=== PATIENT | female | born 2000 | race Caucasian/White ===

== ENCOUNTER 2019-03-01 20:42 | Emergency (ER) | payer MEDICAID ==
[2019-03-01 21:02] VITALS: BP 150/93; PULSE 118
[2019-03-01] MEDS ORDERED: Ondansetron 4 MG Tab.DIS PO ONE (21:15)
--- NOTE | 2019-03-01 21:22 | EDM.PDOC ---
ED HPI GENERAL MEDICAL PROBLEM - General Chief Complaint: Gastrointestinal Problem Stated Complaint: VOMITING Time Seen by Provider: 03/01/19 21:05 Source of Information: Reports: Patient, Family, Old Records History Limitations: Reports: No Limitations - History of Present Illness INITIAL COMMENTS - FREE TEXT/NARRATIVE: 18 yo female went to the clinic yesterday for vomiting and L mandibular dental pain. She was given an antibiotic and nothing for the nausea. Her mother has Zofran ODT 4 mg that was given in 3 separate doses today without benefit. No fever. No diarrhea. No abdominal pain. Was supposed to follow up with her dentist today, but she forgot to call and make an appt. No blood in her emesis. Onset: Gradual Onset Date: 02/28/19 Duration: Day(s): (1+), Constant Location: Reports: Abdomen (no pain), Other (L mandible) Quality: Reports: Ache (mouth pain) Severity: Moderate (vomiting) Improves with: Reports: None Worsens with: Reports: Other (unknown) Context: Reports: Other (see HPI) Associated Symptoms: Reports: Nausea/Vomiting. Denies: Cough, Fever/Chills, Shortness of Breath Treatments TECHNICAL SERVICE REP: Reports: Other (see below) (zofran ODT 4 mg) denies Pain Score (Numeric/FACES): 0 - Related Data Allergies Allergy/AdvReac Type Severity Reaction Status Date / Time No Known Allergies Allergy Verified 03/01/19 21:02 Home Meds: Home Meds Albuterol [Proventil HFA] 2 inhalation PO Q4H PRN 08/19/13 [History] Albuterol [Proventil Neb Soln] 1 ampule NEB Q4HRRT PRN 08/19/13 [History] Amoxicillin/Clavulanate K [Augmentin 875-125 MG] 1 tab PO BID 03/01/19 [History] Citalopram Hydrobromide [Celexa] 1 tab PO DAILY 03/01/19 [History] Past Medical History Respiratory History: Reports: Asthma Psychiatric History: Reports: ADHD, Anxiety, Other (See Below) 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 Social & Family History - Tobacco Use Smoking Status *Q: Never Smoker Second Hand Smoke Exposure: No - Caffeine Use Caffeine Use: Reports: Soda, Tea - Recreational Drug Use Recreational Drug Use: No - Living Situation & Occupation Living situation: Reports: with Family Occupation: Student ED ROS GENERAL - Review of Systems Review Of Systems: See Below Constitutional: Reports: No Symptoms HEENT: Reports: Dental Pain (no obvious decay, but there are fillings in the molars on that side. The wisdom tooth on the L mandible looks impacted. ). Denies: Ear Pain, Throat Pain, Throat Swelling Respiratory: Reports: No Symptoms Cardiovascular: Reports: No Symptoms GI/Abdominal: Reports: Nausea, Vomiting. Denies: Abdominal Pain, Black Stool, Bloody Stool, Constipation, Diarrhea, Distension, Flatus, Hematemesis, Hematochezia, Melena : Reports: No Symptoms Musculoskeletal: Reports: No Symptoms Skin: Reports: No Symptoms Neurological: Reports: No Symptoms ED EXAM, GI/ABD - Physical Exam Exam: See Below Exam Limited By: No Limitations General Appearance: Alert, WD/WN, No Apparent Distress, Obese Eyes: Bilateral: Normal Appearance Ears: Normal External Exam, Normal Canal, Hearing Grossly Normal, Normal TMs Nose: Normal Inspection, No Blood Throat/Mouth: Normal Inspection, Normal Lips, Normal Oropharynx, Normal Voice, No Airway Compromise, Other (fillings on molars L mandible and an impacted L mandibular wisdom tooth. ) Head: Atraumatic, Normocephalic Neck: Normal Inspection, Non-Tender Respiratory/Chest: No Respiratory Distress, Lungs Clear, Normal Breath Sounds, No Accessory Muscle Use Cardiovascular: Regular Rate, Rhythm, No Edema GI/Abdominal Exam: Normal Bowel Sounds, Soft, Non-Tender, No Distention, Abnormal Bowel Sounds (decreased). No: Distended, Guarding, Rigid, Rebound, Tender, Hernia Back Exam: Normal Inspection. No: CVA Tenderness (R), CVA Tenderness (L) Extremities: Normal Inspection, Normal Range of Motion, Non-Tender, No Pedal Edema Neurological: Alert, Oriented, CN II-XII Intact, Normal Cognition, No Motor/ Sensory Deficits Psychiatric: Normal Affect, Normal Mood Skin Exam: Warm, Dry, Intact, Normal Color, No Rash Course - Vital Signs Text/Narrative:: Did better after Zofran ODT 8 mg SL. No nausea or vomiting after apple juice. Last Recorded V/S: Last Vital Signs Temp 36.4 C 03/01/19 21:09 Pulse 118 H 03/01/19 21:09 Resp 16 03/01/19 21:09 BP 150/93 H 03/01/19 21:09 Pulse Ox 98 03/01/19 21:09 Orthostatic Blood Pressure [ 142/66 Standing] Orthostatic Blood Pressure [ 129/82 Sitting] Orthostatic Blood Pressure [ 114/69 Supine] - Orders/Labs/Meds Orders: Active Orders 24 hr Category Date Time Status Orthostatic Vital Signs [RC] ASDIRECTED Care 03/01/19 21:19 Active Meds: Medications Discontinued Medications Generic Name Dose Route Start Last Admin Trade Name Radha PRN Reason Stop Dose Admin Ondansetron HCl 8 mg 03/01/19 21:15 03/01/19 21:34 Zofran Odt PO 03/01/19 21:16 8 mg ONETIME ONE Administration Departure - Departure Time of Disposition: 22:35 Disposition: Home, Self-Care 01 Condition: Good Clinical Impression: Nausea and vomiting Qualifiers: Vomiting type: unspecified Vomiting Intractability: non-intractable Qualified Code(s): R11.2 - Nausea with vomiting, unspecified - Discharge Information *PRESCRIPTION DRUG MONITORING PROGRAM REVIEWED*: No *COPY OF PRESCRIPTION DRUG MONITORING REPORT IN PATIENT MAGGIE: No Instructions: Nausea and Vomiting, Adult, [id number] Referrals: Norris Quintero MD [Primary Care Provider] - Forms: ED Department Discharge Additional Instructions: Take Zofran ODT 8 mg every 8 hrs as needed for nausea control. Continue your antibiotic. See your dentist [place]. Take acetaminophen as needed for pain relief. Sepsis Event Note - Evaluation Sepsis Screening Result: No Definite Risk - Focused Exam Vital Signs: Vital Signs Temp Pulse Resp BP Pulse Ox 03/01/19 21:09 36.4 C 118 H 16 150/93 H 98 03/01/19 21:00 36.4 C 118 H 16 150/93 H 98 Date Exam was Performed: 03/01/19 Time Exam was Performed: 22:28 - My Orders Last 24 Hours: My Active Orders 03/01/19 21:19 Orthostatic Vital Signs [RC] ASDIRECTED - Assessment/Plan Last 24 Hours: My Active Orders 03/01/19 21:19 Orthostatic Vital Signs [RC] ASDIRECTED
== END 2019-03-01 22:36 | disposition home or self-care (01) ==
LOC: JP.ED 20:42
DX: R11.2 Nausea with vomiting, unspecified (principal); J45.909 Unspecified asthma, uncomplicated; Z79.899 Other long term (current) drug therapy
CPT/HCPCS: 99283; A9270

== ENCOUNTER 2019-04-16 14:21 | Emergency (ER) | payer MEDICAID ==
[2019-04-16 15:02] VITALS: BP 124/81; PULSE 79
--- NOTE | 2019-04-16 15:35 | EDM.PDOC ---
ED HPI GENERAL MEDICAL PROBLEM - General Chief Complaint: Lower Extremity Injury/Pain Stated Complaint: RIGHT ANKEL PAIN Time Seen by Provider: 04/16/19 15:33 Source of Information: Reports: Patient History Limitations: Reports: No Limitations - History of Present Illness INITIAL COMMENTS - FREE TEXT/NARRATIVE: pt states she twisted her ankle about 2 weeks ago and then again last nite. She is having pain with weight bearing. Onset: Other ( hurt the ankle last nite. ) Duration: Hour(s): Location: Reports: Lower Extremity, Right Associated Symptoms: Reports: No Other Symptoms - Related Data Allergies Allergy/AdvReac Type Severity Reaction Status Date / Time No Known Allergies Allergy Verified 03/01/19 21:02 Home Meds: Home Meds Albuterol [Proventil HFA] 2 inhalation PO Q4H PRN 08/19/13 [History] Albuterol [Proventil Neb Soln] 1 ampule NEB Q4HRRT PRN 08/19/13 [History] Citalopram Hydrobromide [Celexa] 20 mg PO DAILY 03/01/19 [History] traZODone HCl [Trazodone HCl] 50 mg PO BEDTIME 04/16/19 [History] Past Medical History Respiratory History: Reports: Asthma Psychiatric History: Reports: ADHD, Anxiety, Other (See Below) 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 Social & Family History - Tobacco Use Smoking Status *Q: Never Smoker - Caffeine Use Caffeine Use: Reports: None - Recreational Drug Use Recreational Drug Use: No - Living Situation & Occupation Living situation: Reports: with Family Occupation: Student Review of Systems - Review of Systems Review Of Systems: See Below Constitutional: Reports: No Symptoms Eyes: Reports: No Symptoms Ears: Reports: No Symptoms Nose: Reports: No Symptoms Mouth/Throat: Reports: No Symptoms Respiratory: Reports: No Symptoms Cardiovascular: Reports: No Symptoms GI/Abdominal: Reports: No Symptoms Genitourinary: Reports: No Symptoms Musculoskeletal: Reports: Other (painful ankle and foot on the rt. ) Skin: Reports: No Symptoms ED EXAM, GENERAL - Physical Exam Exam: See Below Free Text/Narrative:: pt twisted her ankle 2 weeks ago and now again last nite. She is having pain with weight bearing. Exam Limited By: No Limitations General Appearance: Alert, Anxious Extremities: Other ( rt ankle is swollen laterally slightly. ) Neurological: Alert, Oriented Course - Vital Signs Last Recorded V/S: Last Vital Signs Temp 36.1 C 04/16/19 15:06 Pulse 79 04/16/19 15:06 Resp 16 04/16/19 15:06 BP 124/81 04/16/19 15:06 Pulse Ox 98 04/16/19 15:06 - Orders/Labs/Meds Orders: Active Orders 24 hr Category Date Time Status Ankle Min 3V Rt [CR] Stat Exams 04/16/19 15:31 Taken Foot 2V Rt [CR] Stat Exams 04/16/19 15:31 Taken - Re-Assessments/Exams Free Text/Narrative Re-Assessment/Exam: 04/16/19 16:39 xray of the foot and ankle is neg for fracture. Departure - Departure Time of Disposition: 16:31 Disposition: Home, Self-Care 01 Condition: Fair Clinical Impression: Ankle sprain - Discharge Information Instructions: Ankle Sprain, [id number] Referrals: PCP,None [Primary Care Provider] - Forms: ED Department Discharge Care Plan Goals: stirup splint cool pack to the area, elevate when possible. motrin 600mg tisd as needed for pain. Sepsis Event Note - Evaluation Sepsis Screening Result: No Definite Risk - Focused Exam Vital Signs: Vital Signs Temp Pulse Resp BP Pulse Ox 04/16/19 15:06 36.1 C 79 16 124/81 98 04/16/19 15:00 36.1 C 79 16 124/81 98 Date Exam was Performed: 04/16/19 Time Exam was Performed: 16:35 - My Orders Last 24 Hours: My Active Orders 04/16/19 15:31 Ankle Min 3V Rt [CR] Stat Foot 2V Rt [CR] Stat - Assessment/Plan Last 24 Hours: My Active Orders 04/16/19 15:31 Ankle Min 3V Rt [CR] Stat Foot 2V Rt [CR] Stat
--- NOTE | 2019-04-18 09:06 | CR ---
Ankle Min 3V Rt, Foot 2V Rt CLINICAL HISTORY: Injury FINDINGS: The soft tissues are mildly swollen over the lateral malleolus. No acute fracture or dislocation is noted. Ankle mortise is intact. Articular surfaces are smooth. Impression: Negative FOOT RIGHT 3 views CLINICAL HISTORY:3 FINDINGS:No fracture or dislocation is identified. Articular surfaces are smooth. Impression: No acute finding
== END 2019-04-16 16:42 | disposition home or self-care (01) ==
LOC: JP.ED 14:21
DX: S93.401A Sprain of unspecified ligament of right ankle, initial encounter (principal); Z79.899 Other long term (current) drug therapy; X50.1XXA Overexertion from prolonged static or awkward postures, initial encounter
CPT/HCPCS: 73610-26-RT; 73610-RT; 73620-26-RT; 73620-RT; 99283

== ENCOUNTER 2019-05-20 20:56 | Emergency (ER) | payer MEDICAID ==
[2019-05-20 21:38] VITALS: BP 117/88; PULSE 99
--- NOTE | 2019-05-20 21:50 | EDM.PDOC ---
ED HPI GENERAL MEDICAL PROBLEM - General Chief Complaint: ENT Problem Stated Complaint: LEFT BOTTOM TOOTHACHE Time Seen by Provider: 05/20/19 21:44 Source of Information: Reports: Patient History Limitations: Reports: No Limitations - History of Present Illness INITIAL COMMENTS - FREE TEXT/NARRATIVE: Patient presents describing left lower jaw tooth discomfort over the last day or so. She has an area of cavity in that tooth but has not seen a dentist yet. Pain is interfering with activities. No unusual taste in the mouth. No bleeding or other discharge. She does not have any pain medication at home. Onset: Gradual Duration: Day(s): (2) Location: Reports: Head Quality: Reports: Ache Severity: Mild Improves with: Reports: None Worsens with: Reports: Eating Associated Symptoms: Reports: No Other Symptoms 10 Pain Score (Numeric/FACES): 10 - Related Data Allergies Allergy/AdvReac Type Severity Reaction Status Date / Time No Known Allergies Allergy Verified 05/20/19 21:35 Home Meds: Home Meds Albuterol [Proventil HFA] 2 inhalation PO Q4H PRN 08/19/13 [History] Albuterol [Proventil Neb Soln] 1 ampule NEB Q4HRRT PRN 08/19/13 [History] Citalopram Hydrobromide [Celexa] 20 mg PO DAILY 03/01/19 [History] traZODone HCl [Trazodone HCl] 50 mg PO BEDTIME 04/16/19 [History] Past Medical History - Past Health History Medical/Surgical History: Denies Medical/Surgical History Respiratory History: Reports: Asthma Psychiatric History: Reports: ADHD, Anxiety, Other (See Below) 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 Social & Family History - Tobacco Use Smoking Status *Q: Never Smoker - Caffeine Use Caffeine Use: Reports: None - Recreational Drug Use Recreational Drug Use: No - Living Situation & Occupation Living situation: Reports: with Family Occupation: Student ED ROS ENT - Review of Systems Review Of Systems: Comprehensive ROS is negative, except as noted in HPI. ED EXAM, ENT - Physical Exam Exam: See Below Exam Limited By: No Limitations General Appearance: Alert, No Apparent Distress Mouth/Throat: Other (There is extensive central decay in tooth #18 along with some gingival redness and edema same location. No visible or palpable pus area is noted. No neck nodes.) Course - Vital Signs Last Recorded V/S: Last Vital Signs Temp 36.4 C 05/20/19 21:36 Pulse 99 05/20/19 21:36 Resp 18 05/20/19 21:36 BP 117/88 05/20/19 21:36 Pulse Ox 96 05/20/19 21:36 - Re-Assessments/Exams Free Text/Narrative Re-Assessment/Exam: 05/20/19 21:52 I recommend she use a piece of chewing gum over the cavity in tooth #18. Start amoxicillin 500 mg antibiotic tonight. Use ibuprofen 600 mg 4 times daily. Contact dentist on Thursday, 22 May for further advice about this decayed tooth. Return to ER if feeling worse in anyway. Departure - Departure Time of Disposition: 21:49 Disposition: Home, Self-Care 01 Condition: Good Clinical Impression: Dental caries - Discharge Information *PRESCRIPTION DRUG MONITORING PROGRAM REVIEWED*: Not Applicable *COPY OF PRESCRIPTION DRUG MONITORING REPORT IN PATIENT MAGGIE: Not Applicable Instructions: Dental Caries, Pediatric Referrals: Norris Quintero MD [Primary Care Provider] - Forms: ED Department Discharge Additional Instructions: Start antibiotic tonight. Use ibuprofen regularly for pain. Use a piece of chewing gum to cover the cavity area of the tooth to help reduce pain. Contact your dentist on Thursday for further advice on what to do with this painful tooth. Sepsis Event Note - Evaluation Sepsis Screening Result: No Definite Risk - Focused Exam Vital Signs: Vital Signs Temp Pulse Resp BP Pulse Ox 05/20/19 21:36 36.4 C 99 18 117/88 96 Date Exam was Performed: 05/20/19 Time Exam was Performed: 23:51
== END 2019-05-20 21:58 | disposition home or self-care (01) ==
LOC: JP.ED 20:56
DX: K02.9 Dental caries, unspecified (principal); F41.9 Anxiety disorder, unspecified; J45.909 Unspecified asthma, uncomplicated; F79 Unspecified intellectual disabilities; Z79.899 Other long term (current) drug therapy
CPT/HCPCS: 99283

== ENCOUNTER 2019-06-17 01:46 | Emergency (ER) | payer MEDICAID ==
--- NOTE | 2019-06-17 02:01 | EDM.PDOC ---
ED HPI GENERAL MEDICAL PROBLEM - General Chief Complaint: General Stated Complaint: LEFT SIDE JAW PAIN Time Seen by Provider: 06/17/19 01:58 Source of Information: Reports: Patient History Limitations: Reports: No Limitations - History of Present Illness INITIAL COMMENTS - FREE TEXT/NARRATIVE: pt is having pain in the left lower jaw area. She is scheduled to have a tooth extraction next Thursday. She was refered by the local dental office. Her pain has gotten alot worse tonight. Onset: Gradual Duration: Hour(s): Location: Reports: Face Associated Symptoms: Reports: No Other Symptoms - Related Data Allergies Allergy/AdvReac Type Severity Reaction Status Date / Time No Known Allergies Allergy Verified 06/17/19 01:58 Home Meds: Home Meds Albuterol [Proventil HFA] 2 inhalation PO Q4H PRN 08/19/13 [History] Albuterol [Proventil Neb Soln] 1 ampule NEB Q4HRRT PRN 08/19/13 [History] Citalopram Hydrobromide [Celexa] 20 mg PO DAILY 03/01/19 [History] traZODone HCl [Trazodone HCl] 50 mg PO BEDTIME 04/16/19 [History] Past Medical History - Past Health History Medical/Surgical History: Denies Medical/Surgical History Respiratory History: Reports: Asthma Psychiatric History: Reports: ADHD, Anxiety, Other (See Below) 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 Social & Family History - Caffeine Use Caffeine Use: Reports: None - Living Situation & Occupation Living situation: Reports: with Family Occupation: Student ED ROS GENERAL - Review of Systems Review Of Systems: See Below Constitutional: Reports: No Symptoms HEENT: Reports: Dental Pain, Other (pt has pain in her left lower jaw area. She does not have a fever. ) Respiratory: Reports: No Symptoms Cardiovascular: Reports: No Symptoms Endocrine: Reports: No Symptoms GI/Abdominal: Reports: No Symptoms : Reports: No Symptoms Musculoskeletal: Reports: No Symptoms Skin: Reports: No Symptoms Neurological: Reports: No Symptoms ED EXAM, GENERAL - Physical Exam Exam: See Below Free Text/Narrative:: pt arrived with a painful left lower jaw which is keeping her awake. Exam Limited By: No Limitations General Appearance: Alert, Anxious, Mild Distress Ears: Normal TMs Nose: Normal Inspection Throat/Mouth: Other (pt has a carrious left lower molar that is tender. She is scheduled to have that removed ) Head: Atraumatic Neck: Normal Inspection Respiratory/Chest: No Respiratory Distress Cardiovascular: Regular Rate, Rhythm GI/Abdominal: Soft, Non-Tender (Female) Exam: Deferred Rectal (Female) Exam: Deferred Back Exam: Normal Inspection Extremities: Normal Inspection Course - Vital Signs Last Recorded V/S: Last Vital Signs Temp 36.7 C 06/17/19 01:59 Pulse 79 06/17/19 01:59 Resp 16 06/17/19 01:59 BP 151/97 H 06/17/19 01:59 Pulse Ox 94 L 06/17/19 01:59 - Re-Assessments/Exams Free Text/Narrative Re-Assessment/Exam: 06/17/19 02:18 pt was given torodol 60mg im and norco 5/325 . She will be placed on anantibiotic. Departure - Departure Time of Disposition: 02:19 Disposition: Home, Self-Care 01 Condition: Fair Clinical Impression: Infected tooth - Discharge Information Referrals: Norris Quintero MD [Primary Care Provider] - Forms: ED Department Discharge Care Plan Goals: amoxicillin 500mg tid, torodol 10 mg q6h prn for pain for the next 5 days. Keep [place] appt in [place] for the [place] of this tooth. Sepsis Event Note - Focused Exam Vital Signs: Vital Signs Temp Pulse Resp BP Pulse Ox 06/17/19 01:59 36.7 C 79 16 151/97 H 94 L Date Exam was Performed: 06/17/19 Time Exam was Performed: 02:14
[2019-06-17 02:02] VITALS: BP 151/97; PULSE 79
[2019-06-17] MEDS ORDERED: Acetaminophen/HYDROcodone 325-5 MG Tab PO ONE (02:19)
[2019-06-17] MEDS ORDERED: Ketorolac 60 MG/2 ML SDV IM ONE (02:19)
== END 2019-06-17 02:33 | disposition home or self-care (01) ==
LOC: JP.ED 01:46
DX: K04.7 Periapical abscess without sinus (principal); K02.9 Dental caries, unspecified; J45.909 Unspecified asthma, uncomplicated; F41.9 Anxiety disorder, unspecified; Z79.899 Other long term (current) drug therapy; F79 Unspecified intellectual disabilities
CPT/HCPCS: 96372; 99283; A9270; J1885

== ENCOUNTER 2019-07-05 23:49 | Emergency (ER) | payer MEDICAID ==
[2019-07-06 00:21] VITALS: BP 130/81; PULSE 80
--- NOTE | 2019-07-06 00:25 | EDM.PDOC ---
ED HPI GENERAL MEDICAL PROBLEM - General Chief Complaint: Upper Extremity Injury/Pain Stated Complaint: LEFT WRIST PAIN Time Seen by Provider: 07/06/19 00:00 Source of Information: Reports: Patient History Limitations: Reports: No Limitations - History of Present Illness INITIAL COMMENTS - FREE TEXT/NARRATIVE: 18-year-old female was walking a dog earlier today when the dog lunged ahead while the leash was wrapped around her left wrist, pulling on her wrist. There was not any significant pain initially but tonight it is sore to move her wrist. There is no bruising swelling deformity and she has not taken anything for medication. No other complaints. Onset: Sudden Duration: Hour(s): (About 7 hours ago) Location: Reports: Upper Extremity, Left Associated Symptoms: Reports: No Other Symptoms Left Wrist Pain Score (Numeric/FACES): 7 - Related Data Allergies Allergy/AdvReac Type Severity Reaction Status Date / Time No Known Allergies Allergy Verified 07/06/19 00:11 Home Meds: Home Meds Albuterol [Proventil HFA] 2 inhalation PO Q4H PRN 08/19/13 [History] Albuterol [Proventil Neb Soln] 1 ampule NEB Q4HRRT PRN 08/19/13 [History] Citalopram Hydrobromide [Celexa] 20 mg PO DAILY 03/01/19 [History] traZODone HCl [Trazodone HCl] 50 mg PO BEDTIME 04/16/19 [History] Past Medical History - Past Health History Medical/Surgical History: Denies Medical/Surgical History Respiratory History: Reports: Asthma Psychiatric History: Reports: ADHD, Anxiety, Other (See Below) 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 Social & Family History - Family History Family Medical History: Noncontributory - Tobacco Use Smoking Status *Q: Never Smoker - Caffeine Use Caffeine Use: Reports: Soda - Recreational Drug Use Recreational Drug Use: No - Living Situation & Occupation Living situation: Reports: with Family Occupation: Student Review of Systems - Review of Systems Review Of Systems: See Below Constitutional: Denies: Fever Respiratory: Reports: No Symptoms Cardiovascular: Reports: No Symptoms Skin: Denies: Bruising Neurological: Denies: Paresthesia Psychiatric: Reports: No Symptoms ED EXAM, GENERAL - Physical Exam Exam: See Below Exam Limited By: No Limitations General Appearance: Alert, No Apparent Distress Head: Atraumatic Respiratory/Chest: No Respiratory Distress Extremities: Other (Exam is otherwise limited to the left arm. She has no pain to the shoulder elbow or wrist to palpation. There is slight soreness with flexion of the wrist against resistance but there is good grasp strength and she has full range of motion) Course - Vital Signs Last Recorded V/S: Last Vital Signs Temp 98.1 F 07/06/19 00:11 Pulse 80 07/06/19 00:11 Resp 16 07/06/19 00:11 BP 130/81 07/06/19 00:11 Pulse Ox 98 07/06/19 00:11 - Re-Assessments/Exams Free Text/Narrative Re-Assessment/Exam: 07/06/19 00:23 Explained to the patient she has a mild strain of the wrist, and a 3 inch David wrap was applied to the wrist. She can take ibuprofen or Tylenol for the next couple of days and increase activity as tolerated. Departure - Departure Time of Disposition: 00:26 Disposition: Home, Self-Care 01 Condition: Good Clinical Impression: Strain of wrist, left Qualifiers: Encounter type: initial encounter Qualified Code(s): S66.912A - Strain of unspecified muscle, fascia and tendon at wrist and hand level, left hand, initial encounter - Discharge Information Instructions: Wrist Sprain, Adult Referrals: PCP,None [Primary Care Provider] - Forms: ED Department Discharge Care Plan Goals: Wear wrap for the next couple of days, and ibuprofen or Tylenol may be helpful and increase activity as tolerated. Recheck in 4 to 6 days if not improving satisfactorily. Sepsis Event Note - Evaluation Sepsis Screening Result: No Definite Risk - Focused Exam Vital Signs: Vital Signs Temp Pulse Resp BP Pulse Ox 07/06/19 00:11 98.1 F 80 16 130/81 98 Date Exam was Performed: 07/06/19 Time Exam was Performed: 02:16
== END 2019-07-06 00:30 | disposition home or self-care (01) ==
LOC: JP.ED 23:49
DX: S66.912A Strain of unspecified muscle, fascia and tendon at wrist and hand level, left hand, initial encounter (principal); J45.909 Unspecified asthma, uncomplicated; F41.9 Anxiety disorder, unspecified; F79 Unspecified intellectual disabilities; Z79.899 Other long term (current) drug therapy; X50.9XXA Other and unspecified overexertion or strenuous movements or postures, initial encounter
CPT/HCPCS: 99283

== ENCOUNTER 2019-10-19 00:45 | Emergency (ER) | payer MEDICAID ==
--- NOTE | 2019-10-19 00:51 | EDM.PDOC ---
ED HPI GENERAL MEDICAL PROBLEM - General Chief Complaint: Upper Extremity Injury/Pain Stated Complaint: LEFT HAND PAIN Time Seen by Provider: 10/19/19 01:03 Source of Information: Reports: Patient, Old Records, RN History Limitations: Reports: No Limitations - History of Present Illness INITIAL COMMENTS - FREE TEXT/NARRATIVE: 19 yo female awoke with L hand numbness to most of her fingers. Sx's mostly gone by the time she arrives in the ER. No hx of the same. Onset: Today, Sudden Onset Date: 10/19/19 Duration: Minutes:, Resolved Prior to Arrival Location: Reports: Upper Extremity, Left Quality: Reports: Other (numbness) Severity: Moderate Improves with: Reports: Other (time) Worsens with: Reports: Other (uncertain) Context: Reports: Other (See HPI) Associated Symptoms: Reports: No Other Symptoms Treatments GROUNDS PERSON: Reports: Other (see below) (none) Left Hand Pain Score (Numeric/FACES): 6 - Related Data Allergies Allergy/AdvReac Type Severity Reaction Status Date / Time No Known Allergies Allergy Verified 10/19/19 00:54 Home Meds: Home Meds Albuterol [Proventil HFA] 2 inhalation PO Q4H PRN 08/19/13 [History] Albuterol [Proventil Neb Soln] 1 ampule NEB Q4HRRT PRN 08/19/13 [History] Citalopram Hydrobromide [Celexa] 20 mg PO DAILY 03/01/19 [History] traZODone HCl [Trazodone HCl] 50 mg PO BEDTIME 04/16/19 [History] Past Medical History - Past Health History Medical/Surgical History: Denies Medical/Surgical History Respiratory History: Reports: Asthma Psychiatric History: Reports: ADHD, Anxiety, Other (See Below) 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 Social & Family History - Family History Family Medical History: Noncontributory - Caffeine Use Caffeine Use: Reports: Soda - Living Situation & Occupation Living situation: Reports: with Family Occupation: Student Review of Systems - Review of Systems Review Of Systems: See Below Constitutional: Reports: No Symptoms Musculoskeletal: Reports: No Symptoms Skin: Reports: No Symptoms Neurological: Reports: Numbness (L hand only) ED EXAM, GENERAL - Physical Exam Exam: See Below Exam Limited By: No Limitations General Appearance: Alert, WD/WN, No Apparent Distress, Obese Extremities: Normal Inspection, Normal Range of Motion, Non-Tender, No Pedal Edema. No: Pedal Edema, Limited Range of Motion, Increased Warmth, Redness Neurological: Alert, Oriented, CN II-XII Intact, Normal Cognition, No Motor/Sensory Deficits, Other (negative Tinnel's and Phalen's tests). No: Sensory/Motor Deficit Psychiatric: Normal Affect, Normal Mood Skin Exam: Warm, Dry, Intact, Normal Color, No Rash Course - Vital Signs Last Recorded V/S: Last Vital Signs Temp 35.7 C L 10/19/19 01:00 Pulse 99 10/19/19 01:00 Resp 16 10/19/19 01:00 BP 130/85 10/19/19 01:00 Pulse Ox 99 10/19/19 01:00 Departure - Departure Time of Disposition: 01:10 Disposition: Home, Self-Care 01 Condition: Good Clinical Impression: Nerve compression - Discharge Information *PRESCRIPTION DRUG MONITORING PROGRAM REVIEWED*: No *COPY OF PRESCRIPTION DRUG MONITORING REPORT IN PATIENT MAGGIE: No Instructions: Pinched Nerve Referrals: PCP,None [Primary Care Provider] - Forms: ED Department Discharge Additional Instructions: Recheck as needed. Sepsis Event Note (ED) - Focused Exam Vital Signs: Vital Signs Temp Pulse Resp BP Pulse Ox 10/19/19 01:00 35.7 C L 99 16 130/85 99
[2019-10-19 01:01] VITALS: BP 130/85; PULSE 99
== END 2019-10-19 01:13 | disposition home or self-care (01) ==
LOC: JP.ED 00:45
DX: G56.92 Unspecified mononeuropathy of left upper limb (principal); E66.9 Obesity, unspecified; F41.9 Anxiety disorder, unspecified; J45.909 Unspecified asthma, uncomplicated; Z79.899 Other long term (current) drug therapy; Z68.42 Body mass index [BMI] 45.0-49.9, adult
CPT/HCPCS: 99283

== ENCOUNTER 2020-05-01 19:54 | Emergency (ER) | payer MEDICAID ==
[2020-05-01 20:13] VITALS: BP 152/82; PULSE 111
--- NOTE | 2020-05-01 20:32 | EDM.PDOC ---
ED HPI GENERAL MEDICAL PROBLEM - General Chief Complaint: ENT Problem Stated Complaint: TOOTH PAIN Time Seen by Provider: 05/01/20 20:15 Source of Information: Reports: Patient History Limitations: Reports: No Limitations - History of Present Illness INITIAL COMMENTS - FREE TEXT/NARRATIVE: 19-year-old female with a swollen and tender area just above the first canine of the right maxillae for the last several days. No significant swelling of the face, no fever or erythema of soft tissue. Onset: Gradual Duration: Day(s): (3 days) Location: Reports: Other (Right mandible canine) Oral/Mouth Pain Score (Numeric/FACES): 8 - Related Data Allergies Allergy/AdvReac Type Severity Reaction Status Date / Time No Known Allergies Allergy Verified 10/19/19 00:54 Home Meds: Home Meds Albuterol [Proventil HFA] 2 inhalation PO Q4H PRN 08/19/13 [History] Albuterol [Proventil Neb Soln] 1 ampule NEB Q4HRRT PRN 08/19/13 [History] Citalopram Hydrobromide [Celexa] 20 mg PO DAILY 03/01/19 [History] traZODone HCl [Trazodone HCl] 50 mg PO BEDTIME 04/16/19 [History] Ibuprofen 200 mg PO ASDIRECTED PRN 05/01/20 [History] Past Medical History - Past Health History Medical/Surgical History: Denies Medical/Surgical History Respiratory History: Reports: Asthma Psychiatric History: Reports: ADHD, Anxiety, Other (See Below) 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 Social & Family History - Family History Family Medical History: No Pertinent Family History - Tobacco Use Tobacco Use Status *Q: Never Tobacco User - Caffeine Use Caffeine Use: Reports: Coffee, Soda, Tea - Recreational Drug Use Recreational Drug Use: No - Living Situation & Occupation Living situation: Reports: with Family Occupation: Student ED ROS ENT - Review of Systems Review Of Systems: See Below Constitutional: Denies: Fever, Chills HEENT: Reports: Dental Pain Respiratory: Denies: Shortness of Breath Cardiovascular: Denies: Chest Pain GI/Abdominal: Denies: Nausea, Vomiting ED EXAM, ENT - Physical Exam Exam: See Below Exam Limited By: No Limitations General Appearance: Alert, No Apparent Distress Mouth/Throat: Other (Patient does have some mild swelling of the gingiva above the first canine on the right maxillae, it is also tender to palpation but not fluctuant) Respiratory/Chest: No Respiratory Distress Neurological: Alert, Oriented Psychiatric: Normal Affect, Normal Mood Skin: Warm, Dry Course - Vital Signs Last Recorded V/S: Last Vital Signs Temp 97.9 F 05/01/20 20:16 Pulse 111 H 05/01/20 20:16 Resp 16 05/01/20 20:16 BP 152/82 H 05/01/20 20:16 Pulse Ox 97 05/01/20 20:16 - Re-Assessments/Exams Free Text/Narrative Re-Assessment/Exam: 05/01/20 20:31 Patient was placed on penicillin VK 500 3 times a day and I would like her to call her dentist this week to consider rechecking and get dental x-rays. Departure - Departure Time of Disposition: 20:39 Disposition: Home, Self-Care 01 Clinical Impression: Dental abscess - Discharge Information Instructions: Dental Abscess, [id number] Referrals: Norris Quintero MD [Primary Care Provider] - Forms: ED Department Discharge Care Plan Goals: Take antibiotic 3 times a day for at least 7 days, and call your dentist to see if they can get you in for dental x-rays or at least a recheck later this week. Sepsis Event Note (ED) - Evaluation Sepsis Screening Result: No Definite Risk - Focused Exam Vital Signs: Vital Signs Temp Pulse Resp BP Pulse Ox 05/01/20 20:16 97.9 F 111 H 16 152/82 H 97 05/01/20 20:12 97.9 F 111 H 16 152/82 H 97
== END 2020-05-01 20:39 | disposition home or self-care (01) ==
LOC: JP.ED 19:54
DX: K04.7 Periapical abscess without sinus (principal); J45.909 Unspecified asthma, uncomplicated; Z79.899 Other long term (current) drug therapy
CPT/HCPCS: 99282; 99283

== ENCOUNTER 2020-08-07 22:12 | Emergency (ER) | payer MEDICAID ==
[2020-08-07 22:52] VITALS: BP 128/87; PULSE 105
--- NOTE | 2020-08-07 23:29 | EDM.PDOC ---
ED HPI GENERAL MEDICAL PROBLEM - General Chief Complaint: Skin Complaint Stated Complaint: RASH ON LEFT FOREARM Time Seen by Provider: 08/07/20 22:26 Source of Information: Reports: Patient History Limitations: Reports: No Limitations - History of Present Illness INITIAL COMMENTS - FREE TEXT/NARRATIVE: chief complaint: rash on right forearm This is a 19 year old female present to the ER for evaluation of rash on arm for the past two days. She has not applied any cremes or lotion to the rash or taken any pills. She reports the rash is very itchy and bothers her at night when she is trying to sleep. reports no other concerns. Onset: Gradual Onset Date: 08/05/20 Duration: Day(s): (two) Location: Reports: Upper Extremity, Right Quality: Reports: Other (itch) Severity: Moderate Improves with: Reports: None Worsens with: Reports: None Associated Symptoms: Reports: No Other Symptoms - Related Data Allergies Allergy/AdvReac Type Severity Reaction Status Date / Time No Known Allergies Allergy Verified 08/07/20 23:14 Home Meds: Home Meds Albuterol [Proventil HFA] 2 inhalation PO Q4H PRN 08/19/13 [History] Albuterol [Proventil Neb Soln] 1 ampule NEB Q4HRRT PRN 08/19/13 [History] Citalopram Hydrobromide [Celexa] 20 mg PO DAILY 03/01/19 [History] traZODone HCl [Trazodone HCl] 50 mg PO BEDTIME 04/16/19 [History] Ibuprofen 200 mg PO ASDIRECTED PRN 05/01/20 [History] Past Medical History - Past Health History Medical/Surgical History: Denies Medical/Surgical History Respiratory History: Reports: Asthma Psychiatric History: Reports: ADHD, Anxiety, Other (See Below) 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 Social & Family History - Family History Family Medical History: No Pertinent Family History - Caffeine Use Caffeine Use: Reports: Coffee, Soda, Tea - Living Situation & Occupation Living situation: Reports: with Family Occupation: Student ED ROS GENERAL - Review of Systems Review Of Systems: See Below Constitutional: Reports: Other (itchy rash on the arm for two days) HEENT: Reports: No Symptoms Respiratory: Reports: No Symptoms Cardiovascular: Reports: No Symptoms Endocrine: Reports: No Symptoms GI/Abdominal: Reports: No Symptoms Musculoskeletal: Reports: No Symptoms Skin: Reports: Rash (right forearm) Neurological: Reports: No Symptoms Psychiatric: Reports: No Symptoms Hematologic/Lymphatic: Reports: No Symptoms Immunologic: Reports: No Symptoms ED EXAM, SKIN/RASH Exam: See Below Exam Limited By: No Limitations General Appearance: Alert, WD/WN, No Apparent Distress, Other (neat and well groomed, pleasant young Lady) Respiratory/Chest: No Respiratory Distress, Lungs Clear, Normal Breath Sounds, No Accessory Muscle Use, Chest Non-Tender Cardiovascular: Regular Rate, Rhythm, No Murmur Extremities: Normal Range of Motion, Non-Tender, Normal Capillary Refill, Other (rash noted to the right forearm) Neurological: Alert, Oriented, CN II-XII Intact, Normal Cognition, Normal Gait, Normal Reflexes, No Motor/Sensory Deficits Psychiatric: Normal Affect, Normal Mood Skin: Rash Location, Skin: Upper Extremity, Right Characteristics: Maculopapular, Fine Associated features: Warmth Lymphatic: No Adenopathy Course - Vital Signs Last Recorded V/S: Last Vital Signs Temp 96.9 F 08/07/20 22:51 Pulse 105 H 08/07/20 22:51 Resp 18 08/07/20 22:51 BP 128/87 08/07/20 22:51 Pulse Ox 99 08/07/20 22:51 - Re-Assessments/Exams Free Text/Narrative Re-Assessment/Exam: 08/07/20 23:35 discussed skin rashes, will order Benadryl po and Hydrocortisone creme for itch and will help resolve the rash return to Clinic or ER if not improved or symptoms worsen. Khalida agrees with plan of care. Departure - Departure Time of Disposition: 23:26 Disposition: Home, Self-Care 01 Condition: Good Clinical Impression: Pruritic rash - Discharge Information *PRESCRIPTION DRUG MONITORING PROGRAM REVIEWED*: Not Applicable *COPY OF PRESCRIPTION DRUG MONITORING REPORT IN PATIENT MAGGIE: Not Applicable Instructions: Pruritus, Rash, Adult Referrals: Norris Quintero MD [Primary Care Provider] - Forms: ED Department Discharge Care Plan Goals: Rash to right forearm -Benadryl 25 mg take one capsule every 6 hours as needed for itch -apply Hydrocortisone creme to rash two times a day as needed for itch -avoid scratching return to Clinic for recheck if not improved Return to ER for any concerns. Sepsis Event Note (ED) - Focused Exam Vital Signs: Vital Signs Temp Pulse Resp BP Pulse Ox 08/07/20 22:51 96.9 F 105 H 18 128/87 99 - Problem List & Annotations (1) Pruritic rash SNOMED Code(s): 46597570 Code(s): L28.2 - OTHER PRURIGO Status: Acute Priority: High Current Visit: Yes - Problem List Review Problem List Initiated/Reviewed/Updated: Yes - Assessment/Plan Plan: Rash to right forearm -Benadryl 25 mg take one capsule every 6 hours as needed for itch -apply Hydrocortisone creme to rash two times a day as needed for itch -avoid scratching return to Clinic for recheck if not improved Return to ER for any concerns.
== END 2020-08-07 23:49 | disposition home or self-care (01) ==
LOC: JP.ED 22:12
DX: L29.9 Pruritus, unspecified (principal)
CPT/HCPCS: 99282

== ENCOUNTER 2020-08-12 18:10 | Emergency (ER) | payer MEDICAID ==
--- NOTE | 2020-08-12 18:17 | EDM.PDOC ---
ED HPI GENERAL MEDICAL PROBLEM - General Chief Complaint: Upper Extremity Injury/Pain Stated Complaint: PAIN IN THUMB Time Seen by Provider: 08/12/20 18:17 Source of Information: Reports: Patient - History of Present Illness INITIAL COMMENTS - FREE TEXT/NARRATIVE: Khalida is a 19 year old female whom presents to ER with right thumb pain, Unknown injury but grasping and holding items with thumb causes pain which dose not improved. Khalida has not taken at medication for pain today but concerned regarding her pain. Right Finger-Thumb Pain Score (Numeric/FACES): 6 - Related Data Allergies Allergy/AdvReac Type Severity Reaction Status Date / Time No Known Allergies Allergy Verified 08/07/20 23:14 Home Meds: Home Meds Albuterol [Proventil HFA] 2 inhalation PO Q4H PRN 08/19/13 [History] Albuterol [Proventil Neb Soln] 1 ampule NEB Q4HRRT PRN 08/19/13 [History] Citalopram Hydrobromide [Celexa] 20 mg PO DAILY 03/01/19 [History] traZODone HCl [Trazodone HCl] 50 mg PO BEDTIME 04/16/19 [History] Ibuprofen 200 mg PO ASDIRECTED PRN 05/01/20 [History] Past Medical History - Past Health History Medical/Surgical History: Denies Medical/Surgical History Respiratory History: Reports: Asthma Psychiatric History: Reports: ADHD, Anxiety, Other (See Below) 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 ED EXAM, GENERAL - Physical Exam Exam: See Below General Appearance: Alert, WD/WN, No Apparent Distress, Mild Distress (right thumb discomfort) Eye Exam: Bilateral Eye: EOMI, Normal Inspection Ears: Hearing Grossly Normal Nose: Normal Inspection Throat/Mouth: Normal Inspection, Normal Voice, No Airway Compromise Neck: Normal Inspection Respiratory/Chest: No Respiratory Distress, Lungs Clear, Normal Breath Sounds Cardiovascular: Normal Peripheral Pulses, Regular Rate, Rhythm Extremities: Other (Hand pain and swelling involving thenar eminence, IP and MCP joints. Skin intact with no obvious bruising noted. ) Neurological: Alert, Oriented Psychiatric: Normal Affect, Normal Mood, Other (Simple thought processing) Skin Exam: Warm, Dry, Intact, Normal Color, No Rash ED TRAUMA EXTREMITY PROCEDURES - Splinting Right Thumb Pre-Procedure NV Status: Normal Post-Procedure NV Status: Normal Splint Material: Velcro Splint Design: Thumb Spica Applied & Form Fitted By: Provider, Nurse Provider Post-Splint Application NV Check: NV Status Normal, Good Position Course - Vital Signs Last Recorded V/S: Last Vital Signs Temp 36.8 C 08/12/20 18:20 Pulse 107 H 08/12/20 18:20 Resp 18 08/12/20 18:20 BP 128/85 08/12/20 18:20 Pulse Ox - Orders/Labs/Meds Orders: Active Orders 24 hr Category Date Time Status Splinting [RC] ASDIRECTED Care 08/12/20 18:46 Active Hand Comp Min 3V Rt [CR] Stat Exams 08/12/20 18:42 Taken - Re-Assessments/Exams Free Text/Narrative Re-Assessment/Exam: 08/12/20 19:12 Right Hand (thumb) xray: soft tissue swelling noted. No obvious acute fracture or dislocation noted. Images read and acted upon by me during ER visit. Radiology report pending at time of ER visit. Departure - Departure Time of Disposition: 19:12 Disposition: Home, Self-Care 01 Clinical Impression: Strain of thumb, right - Discharge Information Instructions: Thumb Sprain Referrals: Norris Quintero MD [Primary Care Provider] - Forms: ED Department Discharge Sepsis Event Note (ED) - Focused Exam Vital Signs: Vital Signs Temp Pulse Resp BP 08/12/20 18:20 36.8 C 107 H 18 128/85 - My Orders Last 24 Hours: My Active Orders 08/12/20 18:42 Hand Comp Min 3V Rt [CR] Stat 08/12/20 18:46 Splinting [RC] ASDIRECTED - Assessment/Plan Last 24 Hours: My Active Orders 08/12/20 18:42 Hand Comp Min 3V Rt [CR] Stat 08/12/20 18:46 Splinting [RC] ASDIRECTED
[2020-08-12 18:21] VITALS: BP 128/85; PULSE 107
--- NOTE | 2020-08-13 10:20 | CR ---
Hand Comp Min 3V Rt CLINICAL HISTORY: Pain FINDINGS: There is no acute fracture or dislocation of the hand. Impression: Negative
== END 2020-08-12 19:31 | disposition home or self-care (01) ==
LOC: JP.ED 18:10
DX: S66.211A Strain of extensor muscle, fascia and tendon of right thumb at wrist and hand level, initial encounter (principal); X50.1XXA Overexertion from prolonged static or awkward postures, initial encounter
CPT/HCPCS: 73130-26-RT; 73130-RT; 99282; 99283-25

== ENCOUNTER 2020-10-18 20:13 | Emergency (ER) | payer MEDICAID ==
[2020-10-18 21:28] VITALS: BP 113/87; PULSE 87
[2020-10-18] MEDS ORDERED: Acetaminophen 500 MG Tab PO ONE (21:38)
--- NOTE | 2020-10-18 21:49 | EDM.PDOC ---
ED HPI GENERAL MEDICAL PROBLEM - General Chief Complaint: Upper Extremity Injury/Pain Stated Complaint: PAIN UPPER RIGHT ARM Time Seen by Provider: 10/18/20 21:35 Source of Information: Reports: Patient, Old Records, RN History Limitations: Reports: No Limitations - History of Present Illness INITIAL COMMENTS - FREE TEXT/NARRATIVE: 20 yo female presents with R shoulder pain that began yesterday. The pain is worse with movement. There was no injury. She has never had this before. She has not tx'd herself or shared her concerns with her doctor. Onset: Gradual Onset Date: 10/17/20 Duration: Day(s): (1.5), Getting Worse Location: Reports: Upper Extremity, Right Quality: Reports: Ache Severity: Mild (at rest.) Improves with: Reports: Rest Worsens with: Reports: Movement Context: Reports: Other (See HPI) Associated Symptoms: Reports: No Other Symptoms Treatments [employer]ING [employer]: Reports: Other (see below) (none) - Related Data Allergies Allergy/AdvReac Type Severity Reaction Status Date / Time No Known Allergies Allergy Verified 08/07/20 23:14 Home Meds: Home Meds Albuterol [Proventil HFA] 2 inhalation PO Q4H PRN 08/19/13 [History] Albuterol [Proventil Neb Soln] 1 ampule NEB Q4HRRT PRN 08/19/13 [History] Ibuprofen 200 mg PO ASDIRECTED PRN 05/01/20 [History] Doxepin HCl [Doxepin] 10 mg PO BEDTIME 10/18/20 [History] buPROPion [Wellbutrin] 100 mg PO DAILY 10/18/20 [History] Past Medical History - Past Health History Medical/Surgical History: Denies Medical/Surgical History Respiratory History: Reports: Asthma Musculoskeletal History: Reports: Other (See Below) Other Musculoskeletal History: R thumb Psychiatric History: Reports: ADHD, Anxiety, Other (See Below) 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 Denies: Hand Pain, Joint Swelling Skin: Reports: No Symptoms Neurological: Reports: No Symptoms ED EXAM, GENERAL - Physical Exam Exam: See Below Exam Limited By: No Limitations General Appearance: Alert, WD/WN, No Apparent Distress, Obese Extremities: Normal Inspection, Normal Range of Motion, No Pedal Edema, Other (entire R deltoid is tender with palpation. No bony pain. ). No: Non-Tender, Pedal Edema, Limited Range of Motion, Increased Warmth, Redness Neurological: Alert, Oriented, CN II-XII Intact, Normal Cognition, No Motor/Sens ory Deficits Psychiatric: Normal Affect, Normal Mood Skin Exam: Warm, Dry, Intact, Normal Color, No Rash Course - Vital Signs Last Recorded V/S: Last Vital Signs Temp 36.2 C 10/18/20 21:27 Pulse 87 10/18/20 21:27 Resp 14 10/18/20 21:27 BP 113/87 10/18/20 21:27 Pulse Ox 99 10/18/20 21:27 - Orders/Labs/Meds Meds: Medications Discontinued Medications Generic Name Dose Route Start Last Admin Trade Name Radha PRN Reason Stop Dose Admin Acetaminophen 1,000 mg 10/18/20 21:38 Acetaminophen 500 Mg Tab PO 10/18/20 21:39 ONETIME ONE Departure - Departure Time of Disposition: 21:50 Disposition: Home, Self-Care 01 Condition: Good Clinical Impression: Right shoulder pain Qualifiers: Chronicity: acute Qualified Code(s): M25.511 - Pain in right shoulder - Discharge Information *PRESCRIPTION DRUG MONITORING PROGRAM REVIEWED*: Not Applicable *COPY OF PRESCRIPTION DRUG MONITORING REPORT IN PATIENT MAGGIE: Not Applicable Instructions: Shoulder Pain Referrals: Norris Quintero MD [Primary Care Provider] - Additional Instructions: Take acetaminophen 1000 mg every 6 hours. You may add ibuprofen 600 mg every 6 hrs if more pain relief is needed. Rest your right arm for a few days. Massage the shoulder with [place]. Follow up with Dr. Quintero next week if not better. Sepsis Event Note (ED) - Evaluation Sepsis Screening Result: No Definite Risk - Focused Exam Vital Signs: Vital Signs Temp Pulse Resp BP Pulse Ox 10/18/20 21:27 36.2 C 87 14 113/87 99
== END 2020-10-18 22:01 | disposition home or self-care (01) ==
LOC: JP.ED 20:13
DX: M25.511 Pain in right shoulder (principal); J45.909 Unspecified asthma, uncomplicated; Z79.899 Other long term (current) drug therapy
CPT/HCPCS: 99283; A9270

== ENCOUNTER 2022-07-10 15:27 | Emergency (ER) | payer MEDICAID ==
[2022-07-10 15:59] VITALS: BP 134/86; PULSE 94
== END 2022-07-10 16:59 | disposition home or self-care (01) ==
LOC: JP.ED 15:27
DX: M25.561 Pain in right knee (principal); J45.909 Unspecified asthma, uncomplicated
CPT/HCPCS: 73562-26-RT; 73562-RT; 99283

== ENCOUNTER 2022-10-24 21:07 | Emergency (ER) | payer MEDICAID ==
[2022-10-24 22:10] VITALS: BP 121/72; PULSE 96
[2022-10-24 22:25] LABS: BILIRUBIN,URINE NEGATIVE (NEGATIVE); COLOR,URINE YELLOW (YELLOW); GLUCOSE,URINE NEGATIVE (NEGATIVE); KETONES,URINE NEGATIVE (NEGATIVE); LEUKOCYTE ESTERASE,URINE TRACE (NEGATIVE); NITRITE,URINE NEGATIVE (NEGATIVE); OCCULT BLOOD,URINE NEGATIVE (NEGATIVE); PROTEIN,URINE TRACE mg/dL (NEGATIVE)
[2022-10-24 22:32] LABS: AMORPHOUS SEDIMENT,URINE NOT SEEN; APPEARANCE,URINE CLOUDY (CLEAR); BACTERIA,URINE MODERATE; EPITHELIAL CELLS,URINE MODERATE; MUCUS,URINE RARE; RBC,URINE 0-5 (0-5)
== END 2022-10-24 23:53 | disposition home or self-care (01) ==
LOC: JP.ED 21:07
DX: N39.0 Urinary tract infection, site not specified (principal); J45.909 Unspecified asthma, uncomplicated
CPT/HCPCS: 81001; 99283

== ENCOUNTER 2023-02-23 17:17 | Emergency (ER) | payer MEDICAID ==
[2023-02-23 17:50] VITALS: BP 120/78; PULSE 71
== END 2023-02-23 18:32 | disposition home or self-care (01) ==
LOC: JP.ED 17:17
DX: S83.91XA Sprain of unspecified site of right knee, initial encounter (principal); H65.03 Acute serous otitis media, bilateral; J45.909 Unspecified asthma, uncomplicated; Z79.899 Other long term (current) drug therapy; Z91.018 Allergy to other foods; Z91.010 Allergy to peanuts; X50.1XXA Overexertion from prolonged static or awkward postures, initial encounter
CPT/HCPCS: 99283

== ENCOUNTER 2023-06-11 23:07 | Emergency (ER) | payer MEDICAID ==
[2023-06-11 23:51] VITALS: BP 133/85; PULSE 100
== END 2023-06-12 00:55 | disposition home or self-care (01) ==
LOC: JP.ED 23:07
DX: M25.561 Pain in right knee (principal); J45.909 Unspecified asthma, uncomplicated; E66.9 Obesity, unspecified; Z68.42 Body mass index [BMI] 45.0-49.9, adult; Z91.010 Allergy to peanuts; Z91.018 Allergy to other foods; Z79.899 Other long term (current) drug therapy
CPT/HCPCS: 73564-26-RT; 73564-RT; 99283

== ENCOUNTER 2023-07-02 20:37 | Emergency (ER) | payer MEDICAID ==
[2023-07-02 21:09] VITALS: BP 126/78; PULSE 87
== END 2023-07-02 21:38 | disposition home or self-care (01) ==
LOC: JP.ED 20:37
DX: S40.012A Contusion of left shoulder, initial encounter (principal); J45.909 Unspecified asthma, uncomplicated; E66.9 Obesity, unspecified; Z79.899 Other long term (current) drug therapy; Z91.010 Allergy to peanuts; Z91.018 Allergy to other foods; W22.8XXA Striking against or struck by other objects, initial encounter
CPT/HCPCS: 99283

== ENCOUNTER 2023-07-29 18:50 | Emergency (ER) | payer MEDICAID ==
[2023-07-29 20:45] VITALS: BP 119/76; PULSE 79
[2023-07-29 21:05] LABS: APPEARANCE,URINE CLOUDY (CLEAR); BILIRUBIN,URINE SMALL (NEGATIVE); COLOR,URINE YELLOW (YELLOW); GLUCOSE,URINE NEGATIVE (NEGATIVE); KETONES,URINE TRACE mg/dL (NEGATIVE); LEUKOCYTE ESTERASE,URINE MODERATE (NEGATIVE); NITRITE,URINE NEGATIVE (NEGATIVE); OCCULT BLOOD,URINE TRACE-INTACT (NEGATIVE); PROTEIN,URINE NEGATIVE (NEGATIVE)
[2023-07-29 21:12] LABS: BACTERIA,URINE MODERATE; EPITHELIAL CELLS,URINE MANY; RBC,URINE 0-5 (0-5); WBC,URINE 20-30 (0-5)
[2023-07-29 21:13] LABS: AMORPHOUS SEDIMENT,URINE NOT SEEN; MUCUS,URINE MODERATE
== END 2023-07-29 21:53 | disposition home or self-care (01) ==
LOC: JP.ED 18:50
DX: N39.0 Urinary tract infection, site not specified (principal); J45.909 Unspecified asthma, uncomplicated; E66.9 Obesity, unspecified; Z79.899 Other long term (current) drug therapy; Z88.8 Allergy status to other drugs, medicaments and biological substances; Z91.010 Allergy to peanuts
CPT/HCPCS: 81001; 81025; 87086; 99283; 99284

== ENCOUNTER 2023-08-15 19:35 | Emergency (ER) | payer MEDICAID ==
[2023-08-15 20:06] VITALS: BP 132/85; PULSE 103
== END 2023-08-15 20:28 | disposition home or self-care (01) ==
LOC: JP.ED 19:35
DX: D17.0 Benign lipomatous neoplasm of skin and subcutaneous tissue of head, face and neck (principal); J45.909 Unspecified asthma, uncomplicated; Z91.010 Allergy to peanuts; Z88.8 Allergy status to other drugs, medicaments and biological substances; Z91.018 Allergy to other foods; Z79.51 Long term (current) use of inhaled steroids; Z79.899 Other long term (current) drug therapy
CPT/HCPCS: 99283

== ENCOUNTER 2023-09-16 11:32 | Emergency (ER) | payer MEDICAID ==
[2023-09-16 11:47] VITALS: BP 139/83; PULSE 110
[2023-09-16] MEDS: Lidocaine 1% 5 ML VIAL INJECT ONE (12:22)
== END 2023-09-16 13:03 | disposition home or self-care (01) ==
LOC: JP.ED 11:32
DX: S61.213A Laceration without foreign body of left middle finger without damage to nail, initial encounter (principal); S61.211A Laceration without foreign body of left index finger without damage to nail, initial encounter; E66.9 Obesity, unspecified; Z79.899 Other long term (current) drug therapy; Z91.018 Allergy to other foods; Z88.8 Allergy status to other drugs, medicaments and biological substances; Z91.010 Allergy to peanuts; Z68.42 Body mass index [BMI] 45.0-49.9, adult; W26.0XXA Contact with knife, initial encounter
CPT/HCPCS: 12001; 99282

== ENCOUNTER 2023-09-26 20:51 | Emergency (ER) | payer MEDICAID ==
[2023-09-26 20:59] VITALS: BP 128/105; PULSE 86
== END 2023-09-26 21:16 | disposition home or self-care (01) ==
LOC: JP.ED 20:51
DX: S61.213D Laceration without foreign body of left middle finger without damage to nail, subsequent encounter (principal); E66.9 Obesity, unspecified; Z79.899 Other long term (current) drug therapy; Z91.010 Allergy to peanuts; Z91.018 Allergy to other foods; Z88.8 Allergy status to other drugs, medicaments and biological substances; Z68.42 Body mass index [BMI] 45.0-49.9, adult; W26.0XXD Contact with knife, subsequent encounter
CPT/HCPCS: 99282

== ENCOUNTER 2023-10-08 17:16 | Emergency (ER) | payer MEDICAID ==
[2023-10-08 17:27] VITALS: BP 147/90; PULSE 98
== END 2023-10-08 18:30 | disposition home or self-care (01) ==
LOC: JP.ED 17:16
DX: M77.8 Other enthesopathies, not elsewhere classified (principal); E66.9 Obesity, unspecified; Z79.899 Other long term (current) drug therapy; Z91.018 Allergy to other foods; Z88.8 Allergy status to other drugs, medicaments and biological substances; Z91.010 Allergy to peanuts; Z68.42 Body mass index [BMI] 45.0-49.9, adult
CPT/HCPCS: 29125; 73110-26-RT; 73110-RT; 73130-26-RT; 73130-RT; 99283; 99283-25

== ENCOUNTER 2023-12-06 22:50 | Emergency (ER) | payer MEDICAID ==
[2023-12-06 23:11] VITALS: BP 123/73; PULSE 98
== END 2023-12-06 23:41 | disposition home or self-care (01) ==
LOC: JP.ED 22:50
DX: M62.830 Muscle spasm of back (principal); E66.9 Obesity, unspecified; Z79.899 Other long term (current) drug therapy; Z91.010 Allergy to peanuts; Z88.8 Allergy status to other drugs, medicaments and biological substances; Z68.42 Body mass index [BMI] 45.0-49.9, adult
CPT/HCPCS: 99283

== ENCOUNTER 2023-12-16 21:18 | Emergency (ER) | payer MEDICAID ==
[2023-12-16 21:28] VITALS: BP 124/74; PULSE 111
== END 2023-12-16 22:58 | disposition home or self-care (01) ==
LOC: JP.ED 21:18
DX: M62.830 Muscle spasm of back (principal); J45.909 Unspecified asthma, uncomplicated; E66.9 Obesity, unspecified; Z91.010 Allergy to peanuts; Z88.8 Allergy status to other drugs, medicaments and biological substances; Z91.018 Allergy to other foods; Z79.899 Other long term (current) drug therapy
CPT/HCPCS: 99283

== ENCOUNTER 2023-12-25 18:21 | Emergency (ER) | payer MEDICAID ==
[2023-12-25 18:41] VITALS: BP 126/76; PULSE 89
[2023-12-25] MEDS: Ibuprofen 600 MG Tab PO ONE (19:13)
== END 2023-12-25 19:43 | disposition home or self-care (01) ==
LOC: JP.ED 18:21
DX: S60.211A Contusion of right wrist, initial encounter (principal); J45.909 Unspecified asthma, uncomplicated; E66.9 Obesity, unspecified; Z68.42 Body mass index [BMI] 45.0-49.9, adult; Z79.899 Other long term (current) drug therapy; Z91.018 Allergy to other foods; Z88.8 Allergy status to other drugs, medicaments and biological substances; W22.8XXA Striking against or struck by other objects, initial encounter
CPT/HCPCS: 73110; 99283; A9270

== ENCOUNTER 2024-01-05 20:13 | Emergency (ER) | payer MEDICAID ==
[2024-01-05 20:30] VITALS: BP 124/76; PULSE 114
[2024-01-05 21:40] LABS: BASOPHILS ABSOLUTE AUTO 0.04 K/uL (0.00-0.10); BASOPHILS PERCENT AUTO 0.5 % (0.1-1.3); EOSINOPHILS ABSOLUTE AUTO 0.23 K/uL (0.00-0.40); EOSINOPHILS PERCENT AUTO 2.6 % (0.0-5.4); HEMATOCRIT 43.2 % (34.3-46.0); HEMOGLOBIN 14.5 g/dL (11.2-15.5); IMMATURE GRAN ABSOLUTE AUTO 0.08 K/uL (0.00-0.23); IMMATURE GRAN PERCENT AUTO 0.9 % (0.0-0.7); LYMPHOCYTES ABSOLUTE AUTO 2.47 K/uL (0.8-3.3); MEAN CORPUSCULAR HEMOGLOBIN 27.6 pg (31.6-35.5); MEAN CORPUSCULAR HGB CONC 33.6 g/dL (31.6-35.5); MEAN CORPUSCULAR VOLUME 82.3 fL (81.4-99.0); MONOCYTES ABSOLUTE AUTO 0.44 K/uL (0.20-0.90); NEUTROPHILS ABSOLUTE AUTO 5.55 K/uL (1.0-7.6); PLATELET COUNT,PLT 230 K/uL (130-375); RED BLOOD CELL COUNT 5.25 M/uL (3.77-5.24); WHITE BLOOD CELL COUNT,WBC 8.8 K/uL (3.2-11.0)
[2024-01-05 21:55] LABS: CALCIUM 9.2 mg/dL (8.5-10.1); CREATININE 0.9 mg/dL (0.6-1.0); EST CRCL DRUG DOSING (CG) 86.73 mL/min
== END 2024-01-05 23:13 | disposition home or self-care (01) ==
LOC: JP.ED 20:13
DX: R55 Syncope and collapse (principal); J45.909 Unspecified asthma, uncomplicated; E66.9 Obesity, unspecified; Z88.8 Allergy status to other drugs, medicaments and biological substances; Z91.010 Allergy to peanuts; Z91.018 Allergy to other foods; Z79.51 Long term (current) use of inhaled steroids; Z79.899 Other long term (current) drug therapy; Z68.42 Body mass index [BMI] 45.0-49.9, adult
CPT/HCPCS: 36415; 80048; 85025; 93005; 99284

== ENCOUNTER 2024-01-10 22:38 | Emergency (ER) | payer MEDICAID ==
[2024-01-10 22:46] VITALS: BP 130/90; PULSE 105
== END 2024-01-10 23:05 | disposition home or self-care (01) ==
LOC: JP.ED 22:38
DX: M62.830 Muscle spasm of back (principal); J45.909 Unspecified asthma, uncomplicated; E66.9 Obesity, unspecified; Z91.018 Allergy to other foods; Z91.010 Allergy to peanuts; Z79.51 Long term (current) use of inhaled steroids; Z79.899 Other long term (current) drug therapy; Z68.42 Body mass index [BMI] 45.0-49.9, adult
CPT/HCPCS: 99281; 99282

== ENCOUNTER 2024-02-03 23:04 | Emergency (ER) | payer MEDICAID ==
[2024-02-03 23:18] VITALS: BP 135/80; PULSE 107
== END 2024-02-03 23:50 | disposition home or self-care (01) ==
LOC: JP.ED 23:04
DX: R07.89 Other chest pain (principal); J45.909 Unspecified asthma, uncomplicated; E66.9 Obesity, unspecified; Z91.010 Allergy to peanuts; Z91.018 Allergy to other foods; Z79.51 Long term (current) use of inhaled steroids; Z79.899 Other long term (current) drug therapy; Z68.43 Body mass index [BMI] 50.0-59.9, adult
CPT/HCPCS: 99283; 99284

== ENCOUNTER 2024-02-14 19:44 | Emergency (ER) | payer MEDICAID ==
[2024-02-14 19:55] VITALS: BP 136/93; PULSE 99
[2024-02-14 20:06] LABS: BASOPHILS ABSOLUTE AUTO 0.07 K/uL (0.00-0.10); BASOPHILS PERCENT AUTO 0.8 % (0.1-1.3); EOSINOPHILS ABSOLUTE AUTO 0.31 K/uL (0.00-0.40); EOSINOPHILS PERCENT AUTO 3.6 % (0.0-5.4); HEMATOCRIT 42.9 % (34.3-46.0); HEMOGLOBIN 14.4 g/dL (11.2-15.5); IMMATURE GRAN ABSOLUTE AUTO 0.09 K/uL (0.00-0.23); LYMPHOCYTES ABSOLUTE AUTO 3.05 K/uL (0.8-3.3); LYMPHOCYTES PERCENT AUTO 34.9 % (11.4-47.7); MEAN CORPUSCULAR HEMOGLOBIN 27.4 pg (31.6-35.5); MEAN CORPUSCULAR HGB CONC 33.6 g/dL (31.6-35.5); MEAN CORPUSCULAR VOLUME 81.7 fL (81.4-99.0); MONOCYTES ABSOLUTE AUTO 0.45 K/uL (0.20-0.90); MONOCYTES PERCENT AUTO 5.2 % (3.3-12.6); NEUTROPHILS ABSOLUTE AUTO 4.76 K/uL (1.0-7.6); NEUTROPHILS PERCENT AUTO 54.5 % (40.0-78.1); PLATELET COUNT,PLT 266 K/uL (130-375); RED BLOOD CELL COUNT 5.25 M/uL (3.77-5.24); WHITE BLOOD CELL COUNT,WBC 8.7 K/uL (3.2-11.0)
[2024-02-14 20:22] LABS: ANION GAP 8.7 mmol/L (5.0-14.0); C-REACTIVE PROTEIN 0.89 mg/dL (<0.50); CALCIUM 8.6 mg/dL (8.5-10.1); CREATININE 0.9 mg/dL (0.6-1.0); EST CRCL DRUG DOSING (CG) 86.73 mL/min
== END 2024-02-14 20:55 | disposition home or self-care (01) ==
LOC: JP.ED 19:44
DX: J32.9 Chronic sinusitis, unspecified (principal); J45.909 Unspecified asthma, uncomplicated; E66.9 Obesity, unspecified; Z86.16 Personal history of COVID-19; Z79.899 Other long term (current) drug therapy; Z91.010 Allergy to peanuts; Z91.018 Allergy to other foods
CPT/HCPCS: 36415; 80048; 85025; 86140; 99284

== ENCOUNTER 2024-02-25 19:21 | Emergency (ER) | payer MEDICAID ==
[2024-02-25 19:28] VITALS: BP 131/93; PULSE 108
[2024-02-25 19:47] LABS: BASOPHILS ABSOLUTE AUTO 0.07 K/uL (0.00-0.10); BASOPHILS PERCENT AUTO 0.6 % (0.1-1.3); EOSINOPHILS ABSOLUTE AUTO 0.04 K/uL (0.00-0.40); EOSINOPHILS PERCENT AUTO 0.3 % (0.0-5.4); HEMATOCRIT 44.5 % (34.3-46.0); HEMOGLOBIN 15.6 g/dL (11.2-15.5); IMMATURE GRAN ABSOLUTE AUTO 0.09 K/uL (0.00-0.23); IMMATURE GRAN PERCENT AUTO 0.7 % (0.0-0.7); LYMPHOCYTES ABSOLUTE AUTO 1.52 K/uL (0.8-3.3); LYMPHOCYTES PERCENT AUTO 12.5 % (11.4-47.7); MEAN CORPUSCULAR HEMOGLOBIN 28.1 pg (31.6-35.5); MEAN CORPUSCULAR HGB CONC 35.1 g/dL (31.6-35.5); MEAN CORPUSCULAR VOLUME 80.2 fL (81.4-99.0); MONOCYTES ABSOLUTE AUTO 0.38 K/uL (0.20-0.90); MONOCYTES PERCENT AUTO 3.1 % (3.3-12.6); NEUTROPHILS ABSOLUTE AUTO 10.02 K/uL (1.0-7.6); NEUTROPHILS PERCENT AUTO 82.8 % (40.0-78.1); PLATELET COUNT,PLT 273 K/uL (130-375); RED BLOOD CELL COUNT 5.55 M/uL (3.77-5.24); WHITE BLOOD CELL COUNT,WBC 12.1 K/uL (3.2-11.0)
[2024-02-25 20:08] LABS: A/G RATIO 1.1 (1.2-2.2); ALANINE AMINOTRANSFERASE,ALT 24 U/L (12-78); ALBUMIN 4.3 g/dL (3.4-5.0); ALKALINE PHOSPHATASE 60 U/L (46-116); ANION GAP 16.2 mmol/L (5.0-14.0); ASPARTATE AMNIOTRANSFERASE,AST 19 U/L (15-37); BILIRUBIN TOTAL 1.1 mg/dL (0.2-1.0); BLOOD UREA NITROGEN,BUN 9 mg/dL (7-18); C-REACTIVE PROTEIN 2.41 mg/dL (<0.50); CALCIUM 9.2 mg/dL (8.5-10.1); CARBON DIOXIDE,CO2 26 mmol/L (21-32); CHLORIDE,CL 99 mmol/L (100-108); CREATININE 0.9 mg/dL (0.6-1.0); EST CRCL DRUG DOSING (CG) 86.73 mL/min; ESTIMATED GFR 92 mL/min (>60); GLUCOSE RANDOM 106 mg/dL (74-106); POTASSIUM,K 4.2 mmol/L (3.6-5.2); PROTEIN TOTAL,TP 8.4 g/dL (6.4-8.2); SODIUM,NA 137 mmol/L (140-148)
[2024-02-25 20:11] LABS: LACTIC ACID 1.6 mmol/L (0.4-2.0)
== END 2024-02-25 20:34 | disposition home or self-care (01) ==
LOC: JP.ED 19:21
DX: K52.9 Noninfective gastroenteritis and colitis, unspecified (principal); J45.909 Unspecified asthma, uncomplicated; E66.9 Obesity, unspecified; Z86.16 Personal history of COVID-19; Z79.899 Other long term (current) drug therapy; Z91.010 Allergy to peanuts; Z91.048 Other nonmedicinal substance allergy status
CPT/HCPCS: 36415; 80053; 83605; 83690; 85025; 86140; 99283; 99284

== ENCOUNTER 2024-03-05 12:51 | Emergency (ER) | payer MEDICAID ==
[2024-03-05 13:34] VITALS: BP 125/74; PULSE 90
== END 2024-03-05 18:27 | disposition home or self-care (01) ==
LOC: JP.ED 12:51
DX: S76.111A Strain of right quadriceps muscle, fascia and tendon, initial encounter (principal); M76.51 Patellar tendinitis, right knee; E66.9 Obesity, unspecified; Z86.16 Personal history of COVID-19; Z79.85 Long-term (current) use of injectable non-insulin antidiabetic drugs; Z79.899 Other long term (current) drug therapy; Z91.041 Radiographic dye allergy status; Z91.010 Allergy to peanuts; Z68.42 Body mass index [BMI] 45.0-49.9, adult; W18.40XA Slipping, tripping and stumbling without falling, unspecified, initial encounter
CPT/HCPCS: 99283

== ENCOUNTER 2024-03-14 19:00 | Emergency (ER) | payer MEDICAID ==
[2024-03-14 20:36] VITALS: BP 145/87; PULSE 110
== END 2024-03-14 21:13 | disposition home or self-care (01) ==
LOC: JP.ED 19:00
DX: H92.03 Otalgia, bilateral (principal); Z91.010 Allergy to peanuts; Z91.018 Allergy to other foods; Z79.899 Other long term (current) drug therapy; Z86.16 Personal history of COVID-19
CPT/HCPCS: 99282; 99283

== ENCOUNTER 2024-03-27 20:58 | Emergency (ER) | payer MEDICAID ==
[2024-03-27 22:34] VITALS: BP 125/84; PULSE 97
== END 2024-03-27 22:30 | disposition home or self-care (01) ==
LOC: JP.ED 20:58
DX: J01.90 Acute sinusitis, unspecified (principal); B97.89 Other viral agents as the cause of diseases classified elsewhere; J45.909 Unspecified asthma, uncomplicated; E66.9 Obesity, unspecified; Z86.16 Personal history of COVID-19; Z79.899 Other long term (current) drug therapy; Z91.010 Allergy to peanuts; Z88.8 Allergy status to other drugs, medicaments and biological substances; Z68.42 Body mass index [BMI] 45.0-49.9, adult
CPT/HCPCS: 99283

== ENCOUNTER 2024-04-02 17:17 | Emergency (ER) | payer MEDICAID ==
[2024-04-02 18:03] VITALS: BP 126/74; PULSE 92
[2024-04-02] MEDS: Ketorolac 30 MG/ML SDV IM ONE (18:45)
== END 2024-04-02 19:10 | disposition home or self-care (01) ==
LOC: JP.ED 17:17
DX: M25.511 Pain in right shoulder (principal); J45.909 Unspecified asthma, uncomplicated; E66.9 Obesity, unspecified; Z91.010 Allergy to peanuts; Z91.018 Allergy to other foods; Z79.899 Other long term (current) drug therapy; Z86.16 Personal history of COVID-19; Z68.42 Body mass index [BMI] 45.0-49.9, adult
CPT/HCPCS: 96372; 99283; J1885

== ENCOUNTER 2024-07-09 19:26 | Emergency (ER) | payer MEDICAID ==
[2024-07-09 20:13] VITALS: BP 140/99; PULSE 108
[2024-07-09 21:00] LABS: ANION GAP 12.1 mmol/L (5.0-14.0); CALCIUM 9.8 mg/dL (8.5-10.1); CREATININE 0.8 mg/dL (0.6-1.0); EST CRCL DRUG DOSING (CG) 97.57 mL/min
[2024-07-09] MEDS: Ondansetron 4 MG/2 ML SDV IVPUSH ONE (21:01)
[2024-07-09] MEDS: Sodium Chloride 0.9% 1,000 ML IV SCH (21:01)
== END 2024-07-09 22:24 | disposition home or self-care (01) ==
LOC: JP.ED 19:26
DX: R11.2 Nausea with vomiting, unspecified (principal); J45.909 Unspecified asthma, uncomplicated; E66.9 Obesity, unspecified; Z86.16 Personal history of COVID-19; Z79.899 Other long term (current) drug therapy; Z91.010 Allergy to peanuts; Z88.8 Allergy status to other drugs, medicaments and biological substances; Z91.018 Allergy to other foods; Z68.42 Body mass index [BMI] 45.0-49.9, adult
CPT/HCPCS: 36415; 80048; 96361; 96374; 99284; J2405; J7030

== ENCOUNTER 2024-07-30 19:45 | Emergency (ER) | payer MEDICAID ==
[2024-07-30 19:59] VITALS: BP 134/80; PULSE 98
== END 2024-07-30 20:15 | disposition home or self-care (01) ==
LOC: JP.ED 19:45
DX: S63.502A Unspecified sprain of left wrist, initial encounter (principal); J45.909 Unspecified asthma, uncomplicated; Z91.010 Allergy to peanuts; Z88.8 Allergy status to other drugs, medicaments and biological substances; Z91.018 Allergy to other foods; Z79.51 Long term (current) use of inhaled steroids; Z79.899 Other long term (current) drug therapy; Z86.16 Personal history of COVID-19; X50.0XXA Overexertion from strenuous movement or load, initial encounter; Y93.89 Activity, other specified
CPT/HCPCS: 99283

== ENCOUNTER 2024-08-03 22:08 | Emergency (ER) | payer MEDICAID ==
[2024-08-03 22:24] VITALS: BP 144/82; PULSE 103
[2024-08-03] MEDS: Ibuprofen 600 MG Tab PO ONE (22:54)
== END 2024-08-03 23:20 | disposition home or self-care (01) ==
LOC: JP.ED 22:08
DX: M43.6 Torticollis (principal); J45.909 Unspecified asthma, uncomplicated; E66.9 Obesity, unspecified; Z91.010 Allergy to peanuts; Z88.8 Allergy status to other drugs, medicaments and biological substances; Z79.899 Other long term (current) drug therapy; Z86.16 Personal history of COVID-19
CPT/HCPCS: 99283; A9270; 99282

== ENCOUNTER 2024-08-20 00:47 | Emergency (ER) | payer MEDICAID ==
[2024-08-20 01:04] VITALS: BP 148/90; PULSE 95
== END 2024-08-20 01:17 | disposition home or self-care (01) ==
LOC: JP.ED 00:47
DX: R07.89 Other chest pain (principal); J45.909 Unspecified asthma, uncomplicated; Z79.51 Long term (current) use of inhaled steroids; Z79.899 Other long term (current) drug therapy; Z86.16 Personal history of COVID-19; Z91.010 Allergy to peanuts; Z88.8 Allergy status to other drugs, medicaments and biological substances; Z91.018 Allergy to other foods
CPT/HCPCS: 99283; 99284

== ENCOUNTER 2024-08-26 23:23 | Emergency (ER) | payer MEDICAID ==
[2024-08-27 02:13] VITALS: BP 140/88; PULSE 73
== END 2024-08-27 02:19 | disposition home or self-care (01) ==
LOC: JP.ED 23:23
DX: L55.0 Sunburn of first degree (principal); E66.9 Obesity, unspecified; Z91.010 Allergy to peanuts; Z88.8 Allergy status to other drugs, medicaments and biological substances; Z79.899 Other long term (current) drug therapy; Z86.16 Personal history of COVID-19; Z68.43 Body mass index [BMI] 50.0-59.9, adult
CPT/HCPCS: 99282

== ENCOUNTER 2024-09-05 00:05 | Emergency (ER) | payer MEDICAID ==
[2024-09-05 01:47] VITALS: BP 128/84; PULSE 89
== END 2024-09-05 01:48 | disposition home or self-care (01) ==
LOC: JP.ED 00:05
DX: M62.830 Muscle spasm of back (principal); E66.9 Obesity, unspecified; Z88.8 Allergy status to other drugs, medicaments and biological substances; Z91.010 Allergy to peanuts; Z79.899 Other long term (current) drug therapy; Z86.16 Personal history of COVID-19
CPT/HCPCS: 99283

== ENCOUNTER 2024-09-28 21:01 | Emergency (ER) | payer MEDICAID ==
[2024-09-28 22:52] VITALS: BP 137/80; PULSE 88
== END 2024-09-28 23:31 | disposition home or self-care (01) ==
LOC: JP.ED 21:01
DX: M25.572 Pain in left ankle and joints of left foot (principal); M25.531 Pain in right wrist; J45.909 Unspecified asthma, uncomplicated; E66.9 Obesity, unspecified; Z68.43 Body mass index [BMI] 50.0-59.9, adult; Z86.16 Personal history of COVID-19; Z91.010 Allergy to peanuts; Z88.8 Allergy status to other drugs, medicaments and biological substances; Z91.018 Allergy to other foods; Z79.51 Long term (current) use of inhaled steroids; Z79.899 Other long term (current) drug therapy
CPT/HCPCS: 99283

== ENCOUNTER 2024-10-06 07:20 | Emergency (ER) | payer MEDICAID ==
[2024-10-06 07:35] VITALS: BP 141/79; PULSE 109
== END 2024-10-06 09:13 | disposition home or self-care (01) ==
LOC: JP.ED 07:20
DX: S60.051A Contusion of right little finger without damage to nail, initial encounter (principal); J45.909 Unspecified asthma, uncomplicated; Z91.010 Allergy to peanuts; Z88.8 Allergy status to other drugs, medicaments and biological substances; Z91.018 Allergy to other foods; Z79.51 Long term (current) use of inhaled steroids; Z79.899 Other long term (current) drug therapy; Z79.85 Long-term (current) use of injectable non-insulin antidiabetic drugs; Z86.16 Personal history of COVID-19
CPT/HCPCS: 73130-26-RT; 73130-RT; 99283

== ENCOUNTER 2024-10-16 11:49 | Emergency (ER) | payer MEDICAID ==
[2024-10-16 13:20] VITALS: BP 153/85; PULSE 92
== END 2024-10-16 13:39 | disposition home or self-care (01) ==
LOC: JP.ED 11:49
DX: J32.9 Chronic sinusitis, unspecified (principal); E66.9 Obesity, unspecified; Z91.010 Allergy to peanuts; Z88.8 Allergy status to other drugs, medicaments and biological substances; Z79.899 Other long term (current) drug therapy; Z86.16 Personal history of COVID-19; Z68.41 Body mass index [BMI] 40.0-44.9, adult
CPT/HCPCS: 99283

== ENCOUNTER 2024-11-05 20:58 | Emergency (ER) | payer MEDICAID ==
[2024-11-05 21:26] VITALS: BP 135/86; PULSE 83
== END 2024-11-05 21:50 | disposition home or self-care (01) ==
LOC: JP.ED 20:58
DX: S96.912A Strain of unspecified muscle and tendon at ankle and foot level, left foot, initial encounter (principal); S93.402A Sprain of unspecified ligament of left ankle, initial encounter; J45.909 Unspecified asthma, uncomplicated; E66.9 Obesity, unspecified; Z68.43 Body mass index [BMI] 50.0-59.9, adult; Z86.16 Personal history of COVID-19; Z88.8 Allergy status to other drugs, medicaments and biological substances; Z91.018 Allergy to other foods; Z91.010 Allergy to peanuts; Z79.51 Long term (current) use of inhaled steroids; Z79.899 Other long term (current) drug therapy; X50.1XXA Overexertion from prolonged static or awkward postures, initial encounter
CPT/HCPCS: 99283

== ENCOUNTER 2024-11-19 21:43 | Emergency (ER) | payer MEDICAID ==
[2024-11-19 22:01] VITALS: BP 148/78; PULSE 99
== END 2024-11-19 22:34 | disposition home or self-care (01) ==
LOC: JP.ED 21:43
DX: H92.01 Otalgia, right ear (principal); J45.909 Unspecified asthma, uncomplicated; E66.9 Obesity, unspecified; Z86.16 Personal history of COVID-19; Z79.899 Other long term (current) drug therapy; Z91.010 Allergy to peanuts; Z88.8 Allergy status to other drugs, medicaments and biological substances; Z68.43 Body mass index [BMI] 50.0-59.9, adult
CPT/HCPCS: 99282; A9270

== ENCOUNTER 2024-12-04 20:40 | Emergency (ER) | payer MEDICAID ==
[2024-12-04 21:01] VITALS: PULSE 90
[2024-12-04 21:11] VITALS: BP 136/80
== END 2024-12-04 22:15 | disposition home or self-care (01) ==
LOC: JP.ED 20:40
DX: M22.2X1 Patellofemoral disorders, right knee (principal); E66.9 Obesity, unspecified; Z79.899 Other long term (current) drug therapy; Z88.8 Allergy status to other drugs, medicaments and biological substances; Z91.018 Allergy to other foods; Z91.010 Allergy to peanuts; Z79.1 Long term (current) use of non-steroidal anti-inflammatories (NSAID); Z86.16 Personal history of COVID-19; Z68.43 Body mass index [BMI] 50.0-59.9, adult; X58.XXXA Exposure to other specified factors, initial encounter
CPT/HCPCS: 99283